=== PATIENT | male | born 1985 | race Caucasian/White ===

== ENCOUNTER 2020-09-22 20:07 | Emergency (ER) | payer BC, SELFPAY ==
[2020-09-22 20:37] VITALS: BP 134/78; PULSE 65; RESP 17; TEMP 36.8; O2SAT 98; BMI 22.4
--- NOTE | 2020-09-22 20:45 | HMH.EDUTC ---
[facility] [place] Disposition Clinical Impression: Encounter for laboratory testing for COVID-19 virus Sinusitis Qualifiers: Sinusitis location: unspecified location Chronicity: unspecified Qualified Code(s): J32.9 - Chronic sinusitis, unspecified Disposition: Home, Self-Care Condition on Discharge: Good Instructions: Sinusitis, DI for Sinusitis, DI for Cough -- Adult, Sore Throat, Preventing the Spread of Coronavirus Discharge Instructions Additional Instructions: *Monitor Temp, Over the counter Motrin or Tylenol as directed/as needed Tylenol every 4 hours and Motrin every 6 hours (as long as your family doctor has told you that you can take it) for fever or pain. and straight to ER if unable to lower temp less than 101.0 after medication given *Warm salt water gargles may help to soothe the throat *Throat Lozenges *Warm fluids like tea with honey may help to soothe the throat *Sleep elevated *Humidifier/Vaporizer *Flonase 2 sprays in each nostril daily but be aware that it may take 2-3 days before you notice improvement Take medication as prescribed Follow up IMMEDIATELY for new or worsening symptoms or no Noticeable improvement over the next 48-72 hours. 911 for difficulty breathing or swallowing You was tested for today for COVID19 your test result should be back in the next 24-48 hours, you may call to the [facility] tomorrow to see if your test results are back and the result [phone] You was given a handout with instructions for Self Quarantine and Self isolation for while you wait on test results and what to do if they are positive If you are positive the Health Dept will be contacting you also Prescriptions: Fluticasone Propionate [Flonase 50mcg nasal spray 16gm] 1 spr NS DAILY #1 bottle Transmission Status: Pending to [id number] methylPREDNISolone [Medrol 4mg tab] 4 mg PO DIRECTED #21 tab Transmission Status: Pending to [id number] Azithromycin [Z-Dennis 250mg Tab] 250 mg PO DIRECTED #6 tab Transmission Status: Pending to [id number] Referrals: Wayne Saleh MD [Primary Care Provider] - As needed Forms: Work/School Release Time of Disposition: 20:54 Medical Decision Making - Erasmo Inquiry Pt receiving controlled substance: No Erasmo was queried for this patient: No Vital Signs: 09/22/20 20:37 Temperature 98.2 F Temperature Source Oral Pulse Rate [Radial] 65 Respiratory Rate 17 Blood Pressure [Right Arm] 134/78 Blood Pressure Mean [Right Arm] 96 Blood Pressure Source [Right Arm] Automatic Cuff Blood Pressure Position [Right Arm] Sitting 02 Sat by Pulse Oximetry 98 Oxygen Delivery Method Room Air Orders (Tests/Meds): ORDERS Category Date Time Status Covid-19 Nasal PCR ([facility]) Routine Lab 09/22/20 20:38 Received [facility] [place] HPI - General Stated complaint: Sore throat, cough Time Seen by Provider: 09/22/20 20:45 Mode of Arrival: Ambulatory Source of Information: Patient Limitations: No Limitations Description of Symptoms (Recalled from Triage Doc. 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
[2020-09-22 21:05] VITALS: BP 134/78; PULSE 65; RESP 17; TEMP 36.8; O2SAT 98
== END 2020-09-22 21:06 | disposition home or self-care (01) ==
PROVIDERS: Emergency Provider Nurse Practitioner; PCP Family Medicine
DX: Z20.828 Contact with and (suspected) exposure to other viral communicable diseases (principal); J32.9 Chronic sinusitis, unspecified
CPT/HCPCS: 99201; U0003

== ENCOUNTER 2020-11-15 12:52 | Emergency (ER) | payer BC, SELFPAY ==
[2020-11-15 12:53] VITALS: BP 144/82; PULSE 74; RESP 14; TEMP 36.6; O2SAT 98; BMI 23.1
--- NOTE | 2020-11-15 13:51 | HMH.EDUTC ---
[facility] [place] Clinical Impression: Exposure to COVID-19 virus Sinusitis Qualifiers: Sinusitis location: unspecified location Chronicity: acute Recurrence: non-recurrent Qualified Code(s): J01.90 - Acute sinusitis, unspecified Disposition: Home, Self-Care Condition on Discharge: Good Instructions: DI for COVID-19 (Suspected or Confirmed ), Preventing the Spread of Coronavirus Discharge Instructions Additional Instructions: *Monitor Temp, Over the counter Motrin or Tylenol as directed/as needed Tylenol every 4 hours and Motrin every 6 hours (as long as your family doctor has told you that you can take it) for fever or pain. and straight to ER if unable to lower temp less than 101.0 after medication given Follow up IMMEDIATELY for new or worsening symptoms or no Noticeable improvement over the next 48-72 hours. 911 for difficulty breathing or swallowing You were tested for today for COVID19 your test result should be back in the next 24-48 hours, you may call to the [facility] to see if your test results are back in the next 48 hours [phone] [facility] hours are 9am-9pm You was given a handout with instructions for Self Quarantine and Self isolation for while you wait on test results and what to do if they are positive If you are positive the Health Dept will be contacting you also Prescriptions: Azithromycin [Z-Dennis 250mg Tab*] 250 mg PO UD DOSE PK #6 tab Transmission Status: Received by [id number] Referrals: Wayne Saleh MD [Primary Care Provider] - Time of Disposition: 13:51 Medical Decision Making - Medical Records Medical records reviewed: No: I reviewed the patient's medical records. - Erasmo Inquiry Pt receiving controlled substance: No Vital Signs: 11/15/20 12:53 11/15/20 13:53 Temperature 97.9 F 97.9 F Temperature Source Oral Oral Pulse Rate 74 Pulse Rate [Right] 74 Respiratory Rate 14 14 Blood Pressure 144/82 H Blood Pressure [Right Arm] 144/82 H Blood Pressure Mean [Right Arm] 102 02 Sat by Pulse Oximetry 98 [facility] [place] HPI - General Stated complaint: covid exposure Time Seen by Provider: 11/15/20 13:00 Source of Information: Patient Description of Symptoms (Recalled from Triage Doc. by RN): pt request COVId test pt has no symtoms HEENT Symptoms (Recalled from RN notes): No Resp Symptoms (Recalled from RN notes): No Skin Symptoms (Recalled from RN notes): No MS Symptoms (Recalled from RN notes): No Functional Status (Recalled from RN notes): wnl - History of Present Illness Provider Complaint: He states that he has been exposed to covid. He denies any symptoms except that he has sinus congestion. - Related Data Home Medications Medication Instructions Recorded Confirmed Pantoprazole Sodium [Protonix 20mg 20 mg PO DAILY 12/16/19 12/16/19 Tab] Previous Rx's Medication Instructions Recorded Amoxicillin/Potassium Clav 1 tab PO Q12H 10 Days #20 tab 12/16/19 [Augmentin 875-125 Tablet] predniSONE [Prednisone 20mg 20 mg PO BID 5 Days #10 tab 12/16/19 Tab] Azithromycin [Z-Dennis 250mg Tab] 250 mg PO DIRECTED #6 tab 09/22/20 Fluticasone Propionate [Flonase 1 spr NS DAILY #1 bottle 09/22/20 50mcg nasal spray 16gm] methylPREDNISolone [Medrol 4mg 4 mg PO DIRECTED #21 tab 09/22/20 tab] Azithromycin [Z-Dennis 250mg Tab*] 250 mg PO UD DOSE PK #6 tab 11/15/20 Allergies Allergy/AdvReac Type Severity Reaction Status Date / Time No Known Allergies Allergy Verified 11/15/20 13:16 - Worker's Comp Is this a Worker's Comp case?: No Is this an H Worker's Comp?: No Is this a [place] Worker's Comp?: No [facility] History - Hepatitis A Screen Drug use history?: No High risk sexual behaviors?: No History of sexually transmitted infection?: No Currently employed?: No Childcare worker?: No Do you have indoor plumbing?: Yes Do you have electricity?: Yes Attestation statement:: This patient has been screened for Hepatitis A risk factors. I have revi
[2020-11-15 13:53] VITALS: BP 144/82; PULSE 74; RESP 14; TEMP 36.6
--- NOTE | 2020-11-15 17:44 | PC.NURSE ---
patient notified of positive covid test
== END 2020-11-15 14:01 | disposition home or self-care (01) ==
PROVIDERS: Emergency Provider Nurse Practitioner Family; PCP Family Medicine
DX: U07.1 COVID-19 (principal); J01.90 Acute sinusitis, unspecified
CPT/HCPCS: 99202; G0463; U0003

== ENCOUNTER 2021-05-05 09:57 | Emergency (ER) | payer BC, SELFPAY ==
[2021-05-05 10:00] VITALS: BP 130/71; PULSE 66; RESP 19; TEMP 36.5; O2SAT 100; BMI 23.1
--- NOTE | 2021-05-05 10:22 | HMH.EDUTC ---
[facility] [place] Impression: Sinusitis Qualifiers: Sinusitis location: unspecified location Chronicity: unspecified Qualified Code(s): J32.9 - Chronic sinusitis, unspecified Disposition: Home, Self-Care Condition on Discharge: Good Instructions: Sinusitis, DI for Sinusitis, Prednisone, Amoxicillin and Clavulanic Acid Additional Instructions: *Monitor Temp, Over the counter Motrin or Tylenol as directed/as needed Tylenol every 4 hours and Motrin every 6 hours (as long as your family doctor has told you that you can take it) for fever or pain. and straight to ER if unable to lower temp less than 101.0 after medication given *Warm salt water gargles may help to soothe the throat *Throat Lozenges *Warm fluids like tea with honey may help to soothe the throat *Sleep elevated *Humidifier/Vaporizer *Start antibiotic. Sinus infections may take 2-3 days to notice much improvement so be sure to use conservative measures as discussed for symptoms Lots of Fluids Augmentin can cause GI effects. Probiotics may help to prevent these symptoms Follow up with family doctor if no improvement or any worsening of symptoms Follow up IMMEDIATELY for new or worsening symptoms or no Noticeable improvement over the next 48-72 hours. 911 for difficulty breathing or swallowing Prescriptions: Amoxicillin/Potassium Clav [Augmentin 875-125 Tablet] 1 tab PO Q12H 10 Days #20 tab Transmission Status: Pending to Robert Applebaum MD # guaiFENesin [Mucinex 600mg tablet] 1 - 2 tab PO Q12H PRN #20 tab.er.12h PRN Reason: Congestion Transmission Status: Pending to Robert Applebaum MD # predniSONE [Prednisone 20mg Tab] 20 mg PO BID 5 Days #10 tab Transmission Status: Pending to Robert Applebaum MD # Referrals: Edgard Tan [Primary Care Provider] - As needed Time of Disposition: 10:39 Medical Decision Making - Erasmo Inquiry Pt receiving controlled substance: No Erasmo was queried for this patient: No Vital Signs: 05/05/21 10:00 Temperature 97.7 F Temperature Source Oral Pulse Rate [Right Brachial] 66 Respiratory Rate 19 Blood Pressure [Right Arm] 130/71 Blood Pressure Mean [Right Arm] 90 Blood Pressure Source [Right Arm] Automatic Cuff Blood Pressure Position [Right Arm] Sitting 02 Sat by Pulse Oximetry 100 Oxygen Delivery Method Room Air [facility] [place] - General Stated complaint: sinus problems congestion Time Seen by Provider: 05/05/21 10:23 Mode of Arrival: Ambulatory Source of Information: Patient Limitations: No Limitations Description of Symptoms (Recalled from Triage Doc. by RN): PATIENT C/O CHEST/SINUS CONGESTION, SINUS DRAINAGE, AND COUGH AT NIGHT X 2 WEEKS HEENT Symptoms (Recalled from RN notes): Yes Resp Symptoms (Recalled from RN notes): Yes Skin Symptoms (Recalled from RN notes): No MS Symptoms (Recalled from RN notes): No Functional Status (Recalled from RN notes): WNL - History of Present Illness Provider Complaint: Patient states that he started about 2 weeks ago with sinus pressure and drainage in the back of his throat about 2 weeks ago States that he has been taking over the counter cold and sinus medication but it has continued to get worse States that he feels like it is trying to move into his chest and he has a cough now especially at night and still having sinus congestion - Related Data Home Medications Medication Instructions Recorded Confirmed Famotidine [Pepcid] 40 mg PO DAILY 05/05/21 05/05/21 Pantoprazole Sodium [Protonix 40mg 40 mg PO HS 05/05/21 05/05/21 tablet] Previous Rx's Medication Instructions Recorded Amoxicillin/Potassium Clav 1 tab PO Q12H 10 Days #20 tab 05/05/21 [Augmentin 875-125 Tablet] guaiFENesin [Mucinex 600mg tablet] 1 - 2 tab PO Q12H PRN #20 05/05/21 tab.er.12h predniSONE [Prednisone 20mg 20 mg PO BID 5 Days #10 tab 05/05/21 Tab] Allergies Allergy/AdvReac Type Severity Reaction Status Date / Time No Known Allerg
[2021-05-05 10:41] VITALS: BP 130/71; PULSE 66; RESP 19; TEMP 36.5; O2SAT 100
== END 2021-05-05 10:43 | disposition home or self-care (01) ==
PROVIDERS: Emergency Provider Nurse Practitioner; PCP Internal Medicine
DX: J32.9 Chronic sinusitis, unspecified (principal)
CPT/HCPCS: 99202; G0463

== ENCOUNTER 2021-07-02 18:35 | Emergency (ER) | payer BC, SELFPAY ==
[2021-07-02 19:59] VITALS: BP 134/75; PULSE 84; RESP 18; TEMP 36.6; O2SAT 99; BMI 23.1
[2021-07-02 20:08] VITALS: BP 131/79; PULSE 88; RESP 14; TEMP 36.8
--- NOTE | 2021-07-02 20:21 | HMH.EDUTC ---
[facility] [place] Disposition Clinical Impression: Viral syndrome, Exposure to COVID-19 virus Disposition: Home, Self-Care Condition on Discharge: Good Instructions: Preventing the Spread of Coronavirus Discharge Instructions Additional Instructions: Drink plenty of fluids. Take tylenol for pain or fever. Return if you begin to have difficulty breathing. Follow up with your regular doctor. GO TO THE ER FOR ANY WORSENING SYMPTOMS Quarantine until you know the results of your covid-19 test. If it is positive, the health department should call you and give you further instructions about your length of Quarantine and other things. Notify your school or workplace of your results and follow their instructions regarding return to work/school. Prescriptions: Brompheniramine/Pseudoephed/Dm [Bromfed Dm Cough Syrup] 5 ml PO Q6HP PRN #240 syrup PRN Reason: Cough Transmission Status: Received by [facility] #[id number] Ondansetron [Zofran 4mg ODT] 4 mg PO Q8HP PRN #20 tab.rapdis PRN Reason: Nausea Transmission Status: Received by [facility] #[id number] Referrals: Provider,Referral, [Primary Care Provider] - Forms: Work/School Release Time of Disposition: 20:24 Medical Decision Making - Medical Records Medical records reviewed: No: I reviewed the patient's medical records. - Erasmo Inquiry Pt receiving controlled substance: No Vital Signs: 07/02/21 19:59 07/02/21 20:08 Temperature 97.8 F 98.2 F Temperature Source Oral Pulse Rate 88 Pulse Rate [Left] 84 Respiratory Rate 18 14 Blood Pressure 131/79 Blood Pressure [Right Arm] 134/75 Blood Pressure Mean [Right Arm] 94 02 Sat by Pulse Oximetry 99 - Lab Data Lab Results 07/02/21 20:01: Strep Scn Rapid Clinic Negative Orders (Tests/Meds): ORDERS Category Date Time Status Covid-19 Nasal PCR ([facility]) Routine Lab 07/02/21 20:00 Received Strep Screen Confirmation Stat Micro 07/02/21 20:01 Received [facility] [place] HPI - General Stated complaint: fever, chills Time Seen by Provider: 07/02/21 20:21 Mode of Arrival: Ambulatory Source of Information: Patient Limitations: No Limitations Description of Symptoms (Recalled from Triage Doc. by RN): pt c/o fever, chills and body aches that started this am. HEENT Symptoms (Recalled from RN notes): No Resp Symptoms (Recalled from RN notes): No Skin Symptoms (Recalled from RN notes): No MS Symptoms (Recalled from RN notes): No Functional Status (Recalled from RN notes): fever, chills and body aches - History of Present Illness Provider Complaint: He states he has been having body aches, chills, and a cough since yesterday. Both his daughters have been sick at home. Both his daughters go to daycare. - Related Data Home Medications Medication Instructions Recorded Confirmed Famotidine [Pepcid] 40 mg PO DAILY 05/05/21 05/05/21 Pantoprazole Sodium [Protonix 40mg 40 mg PO HS 05/05/21 05/05/21 tablet] Previous Rx's Medication Instructions Recorded Amoxicillin/Potassium Clav 1 tab PO Q12H 10 Days #20 tab 05/05/21 [Augmentin 875-125 Tablet] guaiFENesin [Mucinex 600mg tablet] 1 - 2 tab PO Q12H PRN #20 05/05/21 tab.er.12h predniSONE [Prednisone 20mg 20 mg PO BID 5 Days #10 tab 05/05/21 Tab] Brompheniramine/Pseudoephed/Dm 5 ml PO Q6HP PRN #240 syrup 07/02/21 [Bromfed Dm Cough Syrup] Ondansetron [Zofran 4mg ODT] 4 mg PO Q8HP PRN #20 tab.rapdis 07/02/21 Allergies Allergy/AdvReac Type Severity Reaction Status Date / Time No Known Allergies Allergy Verified 11/15/20 13:16 - Worker's Comp Is this a Worker's Comp case?: No [facility] History - Hepatitis A Screen Drug use history?: No High risk sexual behaviors?: No History of sexually transmitted infection?: No Currently employed?: No Childcare worker?: No Do you have indoor plumbing?: Yes Do you have electricity?: Yes Attestation statement:: This patient has been screened for Hepatitis A risk f
[2021-07-02 20:49] LABS: UTC Strep Screen (Rapid) Negative (Negative)
== END 2021-07-02 20:28 | disposition home or self-care (01) ==
PROVIDERS: Emergency Provider Nurse Practitioner Family
DX: B34.9 Viral infection, unspecified (principal); Z20.822 Contact with and (suspected) exposure to COVID-19
CPT/HCPCS: 87880; 99203; G0463; U0003

== ENCOUNTER 2022-04-19 08:00 | Emergency (ER) | payer BC, SELFPAY ==
[2022-04-19 08:05] VITALS: BP 136/76; PULSE 78; RESP 17; TEMP 37.1; O2SAT 100; BMI 25.0
--- NOTE | 2022-04-19 08:23 | HMH.EDUTC ---
[facility] [place] Clinical Impression: Otitis media Qualifiers: Otitis media type: unspecified Laterality: left Qualified Code(s): H66.92 - Otitis media, unspecified, left ear Disposition: Home, Self-Care Condition on Discharge: Good Instructions: Middle Ear Infections (Alternative Therapy), Sore Throat, Middle Ear Infection Additional Instructions: *Monitor Temp, Over the counter Motrin or Tylenol as directed/as needed Tylenol every 4 hours and Motrin every 6 hours (as long as your family doctor has told you that you can take it) for fever or pain. and straight to ER if unable to lower temp less than 101.0 after medication given *Warm salt water gargles may help to soothe the throat *Throat Lozenges *Warm fluids like tea with honey may help to soothe the throat *Sleep elevated *Humidifier/Vaporizer Your throat swab was sent for culture. Those results are typically sent to your primary care. Be sure to follow up in 2-3 days with your family doctor/primary care physician if no improvement so they can review those result and treat if necessary. If you don?t have a primary care doctor, I recommend you get one but in the mean time, you will have to return to a walk in clinic Follow up IMMEDIATELY for new or worsening symptoms or no Noticeable improvement over the next 48-72 hours. 911 for difficulty breathing or swallowing Prescriptions: Amoxicillin [Amoxicillin 875MG Tab] 875 mg PO Q12H #20 tab Transmission Status: Pending to [id number] methylPREDNISolone [Medrol 4mg tab] 4 mg PO DIRECTED #21 tab Transmission Status: Pending to [id number] Referrals: Provider,Referral, [Primary Care Provider] - As needed Time of Disposition: 08:42 Medical Decision Making - Erasmo Inquiry Pt receiving controlled substance: No Erasmo was queried for this patient: No Vital Signs: 04/19/22 08:05 04/19/22 08:35 Temperature 98.7 F 98.7 F Temperature Source Oral Pulse Rate 78 Pulse Rate [Right Brachial] 78 Respiratory Rate 17 17 Blood Pressure 136/76 Blood Pressure [Right Arm] 136/76 Blood Pressure Mean [Right Arm] 96 Blood Pressure Source [Right Arm] Automatic Cuff Blood Pressure Position [Right Arm] Sitting 02 Sat by Pulse Oximetry 100 Oxygen Delivery Method Room Air - Lab Data Lab results reviewed: Yes: I reviewed the patient's lab results. Lab Results 04/19/22 08:15: Group A Strep Rapid Negative Orders (Tests/Meds): ORDERS Category Date Time Status Strep Screen Confirmation Stat Micro 04/19/22 08:15 Received [facility] [place] - General Stated complaint: sore throat, left ear ache Time Seen by Provider: 04/19/22 08:23 Mode of Arrival: Ambulatory Source of Information: Patient Limitations: No Limitations Description of Symptoms (Recalled from Triage Doc. by RN): PATIENT C/O SORE THROAT AND LEFT EAR ACHE X 7 DAYS HEENT Symptoms (Recalled from RN notes): Yes Resp Symptoms (Recalled from RN notes): No Skin Symptoms (Recalled from RN notes): No MS Symptoms (Recalled from RN notes): No Functional Status (Recalled from RN notes): WNL - History of Present Illness Provider Complaint: Patient states that he has been having sore throat and pain in his left ear States that pain started last week and has continued for the last 7 days States that today his ear and throat was still hurting so he came in - Related Data Home Medications Medication Instructions Recorded Confirmed Famotidine [Pepcid] 40 mg PO DAILY 05/05/21 04/19/22 Pantoprazole Sodium [Protonix 40mg 40 mg PO HS 05/05/21 04/19/22 tablet] Previous Rx's Medication Instructions Recorded Amoxicillin [Amoxicillin 875MG 875 mg PO Q12H #20 tab 04/19/22 Tab] methylPREDNISolone [Medrol 4mg 4 mg PO DIRECTED #21 tab 04/19/22 tab] Allergies Allergy/AdvReac Type Severity Reaction Status Date / Time No Known Allergies Allergy Verified 11/15/20 13:16 - Worker's Comp Is this a Worker'
[2022-04-19 08:35] VITALS: BP 136/76; PULSE 78; RESP 17; TEMP 37.1; O2SAT 100
[2022-04-19 08:39] LABS: Strep Scrn Group A (Rapid) Negative (Negative)
== END 2022-04-19 08:51 | disposition home or self-care (01) ==
PROVIDERS: Emergency Provider Nurse Practitioner
DX: H66.92 Otitis media, unspecified, left ear (principal); J02.9 Acute pharyngitis, unspecified; Z79.52 Long term (current) use of systemic steroids; Z79.899 Other long term (current) drug therapy
CPT/HCPCS: 87430; 99213; G0463

== ENCOUNTER 2022-09-04 15:00 | Emergency (ER) | payer BC, SELFPAY ==
[2022-09-04 15:17] VITALS: BP 138/83; PULSE 95; RESP 18; TEMP 36.6; O2SAT 98; BMI 23.7
--- NOTE | 2022-09-04 15:38 | EXP.UTC ---
Discharge Plan Disposition Patient Disposition: Home, Self-Care Condition: Good Prescriptions Prescriptions: New azithromycin [Zithromax] 250 mg tablet 250 mg PO UD DOSE PK Qty: 6 0RF Rx Instructions: Take two (2) tablets today, then one (1) tablet days #2 thru #5 benzonatate [benzonatate] 100 mg capsule 100 mg PO TIDP PRN (Reason: Cough) Qty: 30 0RF methylprednisolone 4 mg Tablets,Dose Pack 4 mg PO DIRECTED Qty: 21 0RF No Action famotidine 40 MG tablet 40 mg PO DAILY pantoprazole 40 MG tablet,delayed release (DR/EC) 40 mg PO HS methylprednisolone 4 MG tablet 4 mg PO DIRECTED Qty: 21 0RF Rx Instructions: Take as directed on package instructions amoxicillin 875 MG tablet 875 mg PO Q12H Qty: 20 0RF Referrals Follow up/Referrals: Provider,Referral, MD [Primary Care Provider] - See instructions Activity Restrictions/Add. Instructions Additional Instructions/Restrictions: Drink plenty of fluids. Take tylenol or ibuprofen for pain or fever. Take the medications as directed. Follow up with your regular doctor. GO TO THE ER FOR ANY WORSENING SYMPTOMS Don't start the oral steroids until tomorrow, since you had the shot here today. Clinical Impressions Clinical Impression: Sinusitis, Otitis media Instructions Patient Instructions: Sinusitis, DI for Sinusitis, Dexamethasone Injection Discharge ED Provider: Wilman Joyce [facility] [place] HPI General Stated complaint: Congestion Mode of Arrival: Ambulatory Source of Information: Patient Limitations: No Limitations Time Seen by Provider: 09/04/22 15:38 Description of Symptoms (Recalled from Triage Doc. by RN): pt c/o cough, sore throat, nasal drainage and congestion for 10 days HEENT Symptoms (Recalled from RN notes): Yes Resp Symptoms (Recalled from RN notes): Yes Skin Symptoms (Recalled from RN notes): No MS Symptoms (Recalled from RN notes): No Functional Status (Recalled from RN notes): na History of Present Illness Provider Complaint: He states that for the past 10 days he has had sinus congestion, ear pain and a cough. He denies any fever, chills or body aches. Related Data Home Medications Medication Instructions Recorded Confirmed famotidine 40 mg tablet 40 mg PO DAILY GERD 05/05/21 04/19/22 pantoprazole 40 mg tablet,delayed 40 mg PO HS GERD 05/05/21 04/19/22 release Previous Rx's Medication Instructions Recorded amoxicillin 875 mg tablet 875 mg PO Q12H #20 tabs 04/19/22 methylprednisolone 4 mg tablet 4 mg PO DIRECTED #21 tabs 04/19/22 azithromycin 250 mg tablet 250 mg PO UD DOSE PK #6 tabs 09/04/22 (Zithromax) benzonatate 100 mg capsule 100 mg PO TIDP PRN Cough #30 caps 09/04/22 methylprednisolone 4 mg tablets in 4 mg PO DIRECTED #21 tabs 09/04/22 a dose pack Allergies Allergy/AdvReac Type Severity Reaction Status Date / Time No Known Allergies Allergy Verified 11/15/20 13:16 Worker's Comp Is this a Worker's Comp case?: No PFSH PFSH Social History Smoking Status: Never smoker alcohol intake: never current occupational status: other Travel in the last 8 weeks: None housing: house ROS Obtained: Yes All systems reviewed & no additional complaints except as documented Constitutional Constitutional: Denies chills and Denies fever(s) Eyes Eyes: Denies eye discharge ENT Ears, Nose, Mouth, and Throat: Reports as per HPI Cardiovascular Cardiovascular: Denies chest pain Respiratory Respiratory: Denies chest congestion and Reports cough Gastrointestinal Gastrointestingal: Reports nausea; Denies abdominal pain, constipation, cramping, diarrhea or vomiting Musculoskeletal Musculoskeletal: Denies arthralgias Integumentary/Breasts Skin/Breast: Denies rash Neurologic Neurologic: Denies paresthesias Physical Exam General General appearance: alert and in no apparent distress Head Head exam: atrau
[2022-09-04 16:11] VITALS: BP 136/82; PULSE 88; RESP 18; TEMP 36.6; O2SAT 99
== END 2022-09-04 16:08 | disposition home or self-care (01) ==
PROVIDERS: Emergency Provider Nurse Practitioner Family
DX: H66.90 Otitis media, unspecified, unspecified ear (principal); J32.9 Chronic sinusitis, unspecified
CPT/HCPCS: 90471; 96372; 99212; G0463

== ENCOUNTER 2023-01-16 16:11 | Emergency (ER) | payer BC, SELFPAY ==
--- NOTE | 2023-01-16 16:18 | XR_ITS ---
PROCEDURE INFORMATION: Exam: XR Right Foot Exam date and time: 01/16/2023 4:16 PM Age: 37 years old Clinical indication: Pain; Foot; Right TECHNIQUE: Imaging protocol: Radiologic exam of the right foot. Views: 3 or more views. COMPARISON: No relevant prior studies available. FINDINGS: Bones/joints: Normal. Soft tissues: Normal. IMPRESSION: No acute findings.
[2023-01-16 16:45] VITALS: BP 147/77; PULSE 76; RESP 20; TEMP 36.8; O2SAT 100; BMI 35.6
--- NOTE | 2023-01-16 17:08 | EXP.UTC ---
Discharge Plan Disposition Patient Disposition: Home, Self-Care Condition: Good Prescriptions Prescriptions: New ibuprofen [IBU] 800 mg tablet 800 mg PO Q8HP PRN (Reason: Moderate Pain) Qty: 30 0RF No Action famotidine 40 MG tablet 40 mg PO DAILY pantoprazole 40 MG tablet,delayed release (DR/EC) 40 mg PO HS Referrals Follow up/Referrals: Edgard Tan [Primary Care Provider] - See instructions Karma Nino DPM [Staff Physician] - See instructions Activity Restrictions/Add. Instructions Additional Instructions/Restrictions: Rest the extremity, apply ice for 15 minutes as tolerated three or four times per day, Elevate the extremity as tolerated while you are resting. Take ibuprofen for pain. I sent in a prescription to your pharmacy. Follow up with Dr. Nino (podiatry). Sometimes there can be fractures that don't show up well on the first set of x-rays. So, you should follow up if you continue to have symptoms. I put in a referral but you need to call her office and schedule an appointment. Follow up with your regular doctor. GO TO THE ER FOR ANY WORSENING SYMPTOMS Clinical Impressions Clinical Impression: Crush injury of right foot Instructions Patient Instructions: DI for Crush Injury Discharge ED Provider: Wilman Joyce [facility] [place] General Stated complaint: AO03/10@1000 RT foot inj Mode of Arrival: Ambulatory Source of Information: Patient Limitations: No Limitations Time Seen by Provider: 01/16/23 17:08 Description of Symptoms (Recalled from Triage Doc. by RN): impact top of foot right HEENT Symptoms (Recalled from RN notes): No Resp Symptoms (Recalled from RN notes): No Skin Symptoms (Recalled from RN notes): No MS Symptoms (Recalled from RN notes): Yes Functional Status (Recalled from RN notes): n/a History of Present Illness Provider Complaint: He was working with his horse today with it accidentally stepped on his right foot. He has right foot pain now Related Data Home Medications Medication Instructions Recorded Confirmed famotidine 40 mg tablet 40 mg PO DAILY GERD 05/05/21 01/16/23 pantoprazole 40 mg tablet,delayed 40 mg PO HS GERD 05/05/21 01/16/23 release Previous Rx's Medication Instructions Recorded ibuprofen 800 mg tablet (IBU) 800 mg PO Q8HP PRN Moderate Pain 01/16/23 #30 tabs Allergies Allergy/AdvReac Type Severity Reaction Status Date / Time No Known Allergies Allergy Verified 01/16/23 17:06 Worker's Comp Is this a Worker's Comp case?: No [facility] Disclaimer: The information contained in this section may have been updated after the patient was seen, as this information can be updated by other users. Social History Smoking Status: Never smoker alcohol intake: never current occupational status: other Travel in the last 8 weeks: None housing: house ROS Obtained: Yes All systems reviewed & no additional complaints except as documented Constitutional Constitutional: Denies chills and Denies fever(s) Eyes Eyes: Denies eye discharge ENT Ears, Nose, Mouth, and Throat: Denies dizziness, Denies otalgia and Denies sore throat Cardiovascular Cardiovascular: Denies chest pain Respiratory Respiratory: Denies shortness of breath, Denies chest congestion, Denies cough, Denies stridor and Denies wheezing Gastrointestinal Gastrointestingal: Denies nausea or vomiting Musculoskeletal Musculoskeletal: Reports as per HPI Integumentary/Breasts Skin/Breast: Denies redness, Denies rash and Denies wounds Neurologic Neurologic: Denies dizziness and Denies paresthesias Allergic/Immunologic Allergic/Immunologic: Denies wheezing Physical Exam General General appearance: alert and in no apparent distress Head Head exam: atraumatic, normocephalic and normal inspection Eye Eye exam: Present normal appearance, PERRL and EOMI ENT ENT exam: Present normal exam, normal oropharynx,
[2023-01-16 17:46] VITALS: BP 147/77; PULSE 76; RESP 20; TEMP 36.8; O2SAT 100
== END 2023-01-16 17:45 | disposition home or self-care (01) ==
PROVIDERS: Emergency Provider Nurse Practitioner Family; PCP Internal Medicine
DX: S97.81XA Crushing injury of right foot, initial encounter (principal); W55.12XA Struck by horse, initial encounter
CPT/HCPCS: 73630; 99212; 99214; G0463

== ENCOUNTER → 2023-10-14 15:24 | Outpatient (CLI) | payer BC, SELFPAY ==
[2023-10-14 16:07] LABS: Basophils % 0.9 % (0.1-2.0); Eosinophils # 0.2 K/mm3 (0.0-0.4); Eosinophils % 4.1 % (0.1-12.0); Hematocrit 42.4 % (42.0-52.0); Hemoglobin 14.4 g/dL (14.1-18.0); Lymphocytes % 24.3 % (10-50); Mean Corpuscular Hemoglobin 30.1 pg (27.0-31.2); Mean Corpuscular Volume 88.6 fl (80-94); Mean Platelet Volume 8.5 fl (7.4-10.4); Monocytes # 0.3 K/mm3 (0.1-1.0); Monocytes % 7.9 % (1.7-9.3); Neutrophils # 2.5 K/mm3 (1.8-7.8); Neutrophils % 62.8 % (37.0-80.0); Platelet Count 174 K/mm3 (142-424); Red Blood Count 4.79 M/mm3 (4.60-6.20); Red Cell Distribution Width 13.2 % (11.5-17.5)
[2023-10-14 16:50] LABS: Alanine Aminotransferase 31 U/L (12-78); Albumin Level 4.8 g/dl (3.5-5.0); Alkaline Phosphatase 57 U/L (38-126); Anion Gap 11.9 mEq/L (5-15); Aspartate Amino Transferase 37 U/L (17-59); Bilirubin,Direct 0.1 mg/dl (0.0-0.4); Bilirubin,Indirect 0.6 mg/dL (0.0-0.9); Bilirubin,Total 0.7 mg/dl (0.2-1.3); Bilirubin,Unconjugated 0.6 mg/dL (0.0-1.1); Blood Urea Nitrogen 14 mg/dl (9-20); Calcium 9.2 mg/dl (8.4-10.2); Carbon Dioxide 30 mmol/L (22.0-30.0); Chloride 101 mmol/L (98-107); Chol/HDL Ratio 4.7 (1-3.5); Cholesterol 159 mg/dl (140-200); Estimated Glomerular Filt Rate 95 ml/min (>60); GFR (African American) 115 ML/MIN (>60); Glucose 93 mg/dl (74-100); HDL Cholesterol 34 mg/dl (40-60); Magnesium 1.7 mg/dl (1.6-2.3); Potassium 3.9 mmoL/L (3.5-5.1); Sodium 139 mmol/L (136-145); Total Protein,Serum 7.5 g/dl (6.3-8.2); Triglycerides 138 mg/dl (30-150); VLDL Cholesterol 28 mg/dL (0-40)
[2023-10-14 17:02] LABS: Free T4 (Free Thyroxine) 1.09 ng/dl (0.78-2.19)
[2023-10-14 17:07] LABS: Direct LDL Cholesterol 96.52 mg/dL (100-129)
[2023-10-14 17:20] LABS: Thyroid Stimulating Hormone 1.87 uIU/mL (0.465-4.68)
== END ==
PROVIDERS: Visit Provider Internal Medicine
DX: R00.2 Palpitations (principal); Z82.49 Family history of ischemic heart disease and other diseases of the circulatory system
CPT/HCPCS: 36415; 80048; 80061; 80076; 83735; 84439; 84443; 85025; 93270

== ENCOUNTER → 2023-10-23 15:04 | Outpatient (CLI) | payer BC, SELFPAY ==
--- NOTE | 2023-10-23 15:05 | CA_ITS ---
APPROVED REPORT EXAM: Comprehensive 2D, Doppler, and color-flow Echocardiogram [employer] Associate: JAJA Vargas, RVS Ht: 6 ft 2 in Wt: 204lbs BSA: 2.19 BP: 185/147 mmHg Indications: Palpitations, Family Hx-HD 2D Dimensions Left Atrium 3.03 cm M: 3.0 - 4.0 M-Mode Dimensions RVDd 2.04 cm (0.9-2.6) LA Diam 2.82 cm (1.9-4.0) LVDd 5.53 cm (3.5-5.7) LVDs 3.62 cm (3.5-5.7) IVSd 0.84 cm (0.6-1.1) PWd 0.87 cm (0.6-1.1) EF (Teich) 63.00% EPSs 0.67 cm FS 34.50% EDV (Teich) 149.30 mL TAPSE 2.54 (<1.7) ESV (Teich) 55.20 mL LV Diastology E Decel Time 110 (160-240 msec) E/A Ratio 1.01 MED A' 11.60 cm/s LAT A' 8.60 cm/s Aortic Valve ANIKA Index 1.32 cm2/m2 AoV Peak Shree. 112.0 (50-130 cm/s) AO Peak GR. 5.00 mmHg AO Mean GR. 3.20 (<5 mmHg) AO VTI 22.8 (18-25 cm) ANIKA (VTI) 2.96 (2.5-4.5 cm2) Mitral Valve MV A Velocity 63.0 (40-130 cm/s) E/A Ratio 1.01 Left Ventricle The left ventricle is normal size (LVEDVi 63 ml/m2). The left ventricular systolic function is normal. The left ventricular ejection fraction is within the normal range. There is normal left ventricular wall thickness. There is normal LV segmental wall motion. The left ventricular diastolic function is normal. LVEF is 50-55%. Right Ventricle The right ventricle is mildly dilated. The right ventricular systolic function is normal. Atria The left atrium size is normal. The right atrium size is normal. There is no Doppler evidence of interatrial shunt. Aortic Valve The aortic valve opens well. There is no aortic valvular stenosis. No aortic regurgitation is present. Mitral Valve The mitral valve is normal in structure. No evidence of mitral valve stenosis. Trace mitral regurgitation. Tricuspid Valve The tricuspid valve leaflets are thin and pliable. Trace tricuspid regurgitation. There is insufficient TR jet to estimate RVSP. Pulmonic Valve The pulmonary valve is normal in structure. Trace pulmonic regurgitation. Great Vessels The aortic root is normal in size. The ascending aorta is normal in size. IVC is normal in size and collapses >50% with inspiration. Pericardium There is no pericardial effusion. Other Information Study Quality: Adequate Conclusion Normal biventricular systolic function. Mild RV dilation. No significant valvularr stenosis or regurgitation. Note the discordant LVEF on TTE vs. CCTA. The normal LVEF on TTE likely reflects the true LVEF. Electronically signed by : Maya Duggan MD 10/30/2023 19:33:55
== END ==
PROVIDERS: Visit Provider Internal Medicine
DX: R00.2 Palpitations (principal); Z82.49 Family history of ischemic heart disease and other diseases of the circulatory system
CPT/HCPCS: 93306

== ENCOUNTER → 2023-10-26 06:55 | Outpatient (CLI) | payer BC, SELFPAY ==
[2023-10-26] VITALS (11 sets, daily range): BP systolic 113–149; BP diastolic 65–99; PULSE 58–111; RESP 16–18; TEMP 36.4–36.8; O2SAT 97–100; BMI 25.7
--- NOTE | 2023-10-26 06:58 | CT_ITS ---
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 A noncontrast coronary calcium scan was performed. A CT attenuation threshold of 130 Hounsfield units (HU) was used for the detection of calcium in contiguous voxels of 1 sq mm in area to be counted as individual lesions. Bolus tracking in the ascending aorta with a threshold of 180 HU was performed. Immediately afterwards, ECG synchronized cardiac CT was then performed from the cardiac base to apex using retrospective gating with ECG tube current modulation. A total of 85 mL of Isovue 370 mg/mL contrast medium was administered at 5 mL/sec followed by a saline flush using a biphasic injection protocol. A tube voltage of 120 KVp was used. The patient received the following medications prior to the cardiac CT. 100 mg of oral metoprolol 25 mg of intravenous metoprolol 0.8 mg of sublingual nitroglycerin The average heart rate at the time of acquisition was 69 bpm and regular. Image Reconstruction Transaxial images were reconstructed at 0.67 mm slide thickness. Data was reviewed interactively on an advanced workstation capable of 2 and 3-dimensional displays in all conventional reconstruction formats, including multiplanar reformations, maximum intensity projections, curved multiplanar reformations, and volume rendered reconstructions. When applicable, selected routine images describing the relevant coronary anatomy and pathology were saved and sent to PACS. Complications None Technical Quality Overall image quality was good. Coronary artery opacification was adequate. Total DLP (Dose-Length Product) is 1277.7 mGy-cm. The reported value represents the total of one or more individual components during the CT acquisition of this date and at this time, and as such, the same value may appear in more than one CT report depending on the interpreting/reporting physicians. COMPARISON None FINDINGS CT Coronary Calcium Scoring LMA (Left Main Artery) = 0 LAD (Left Anterior Descending) = 0 LCX (Left Coronary Circumflex) = 0 RCA (Right Coronary Artery) = 0 Total Calcium Score = 0 using the AJ-130 method. The interpretation of the calcium heart score is based on the following continuum*: 0 = no calcified plaque detected (risk of coronary artery disease is very low ??? less than 5%) 1-10 = calcium detected in extremely minimal levels (risk of coronary diseases is still low ??? less than 10%) 11-100 = mild levels of plaque detected with certainty (mild or minimal narrowing of heart arteries is likely) 101-400 = definite,at least moderate levels of plaque detected (relatively high risk of a heart attack within 3-5 years) >401-999 = extensive levels of plaque detected (high risk of heart attack, high levels of vascular disease are present, high likelihood of at least one significant coronary narrowing) *The calcium heart score quantifies the burden of coronary calcification/plaque in the coronary arteries. The calcium heart score is not able to evaluate the presence or burden of non-calcified (i.e. soft) plaque. There is no identifiable calcification in the aortic valve, mitral annulus or mitral valve, pericardium, or myocardium. Coronary CT Angiography The coronary arterial system is right dominant. Quantitative Stenosis Grading: Left Main (LM): The left main originates normally from the left sinus of Valsalva. The LM bifurcates into the left anterior descending artery and left circumflex artery. The LM is patent with no evidence of atherosclerosis. Left Anterior Descending (LAD) and Diagonal Branches: The LAD gives off 2 diagonal branches. The LAD and its branches are p
== END | disposition home or self-care (01) ==
PROVIDERS: Visit Provider Internal Medicine
DX: R00.2 Palpitations (principal); Z82.49 Family history of ischemic heart disease and other diseases of the circulatory system
CPT/HCPCS: 75571; 75574; Q9967

== ENCOUNTER 2024-01-16 08:12 | Emergency (ER) | payer BC, SELFPAY ==
[2024-01-16 08:20] VITALS: BP 162/58; PULSE 92; RESP 18; TEMP 37.1; O2SAT 97; BMI 25.7
[2024-01-16 08:50] LABS: UTC Strep Screen (Rapid) Negative (Negative)
[2024-01-16 08:51] LABS: UTC Influenza A Antigen Negative (Negative); UTC Influenza B Antigen Negative (Negative)
--- NOTE | 2024-01-16 09:29 | ED_ITS ---
Discharge Plan Disposition Patient Disposition: Home, Self-Care Condition: Good Prescriptions Prescriptions: New azithromycin 250 mg tablet 250 mg PO DIRECTED Qty: 6 0RF Rx Instructions: Take two (2) tablets on day #1, then one (1) tablet day #2 thru #5 fluticasone propionate 50 mcg/actuation spray,suspension 1 spray intranasal DAILY Qty: 9.9 0RF No Action famotidine 40 MG tablet 40 mg PO DAILY pantoprazole 40 MG tablet,delayed release (DR/EC) 40 mg PO HS Referrals Follow up/Referrals: Provider,Referral, MD [Primary Care Provider] - See instructions Activity Restrictions/Add. Instructions Additional Instructions/Restrictions: Start antibiotic patient to take as ordered for a full length of time even if you feel better. Sinus infections do not get better overnight. It may take 2-3 days to notice much improvement so be sure to use conservative measures as discussed for symptoms. Flonase 1 spray each nostril daily to help with nasal congestion, sinus and ear pressure/information Increase fluids Humidifier/vaporizer as needed Tylenol and ibuprofen as needed for fever or pain. If symptoms do not improve or get worse return or be seen in the ER Follow-up with primary care this week Clinical Impressions Clinical Impression: Sinusitis Instructions Patient Instructions: DI for Sinusitis Discharge ED Provider: Layla ([facility])Dennise [facility] [place] HPI General Stated complaint: congestion ba Mode of Arrival: Ambulatory Source of Information: Patient Limitations: No Limitations Time Seen by Provider: 01/16/24 09:29 Description of Symptoms (Recalled from Triage Doc. by RN): Pt's symptoms are cough, and chest congestion. Pt's child last week had flu and strep. HEENT Symptoms (Recalled from RN notes): Yes Resp Symptoms (Recalled from RN notes): No Skin Symptoms (Recalled from RN notes): No MS Symptoms (Recalled from RN notes): No Functional Status (Recalled from RN notes): n/a History of Present Illness Provider Complaint: 38 yr old male presents for cough,sinus pressure, green nasal drainage and chest congestion for over 8 days. Pt's child last week had flu and strep. Related Data Home Medications Medication Instructions Recorded Confirmed famotidine 40 mg tablet 40 mg PO DAILY GERD 05/05/21 01/16/24 pantoprazole 40 mg tablet,delayed 40 mg PO HS GERD 05/05/21 01/16/24 release Previous Rx's Medication Instructions Recorded azithromycin 250 mg tablet 250 mg PO DIRECTED #6 tabs 01/16/24 fluticasone propionate 50 1 spray intranasal DAILY #9.9 mL 01/16/24 mcg/actuation nasal spray,suspension Allergies Allergy/AdvReac Type Severity Reaction Status Date / Time No Known Allergies Allergy Verified 01/16/24 08:49 Worker's Comp Is this a Worker's Comp case?: No [facility] Disclaimer: The information contained in this section may have been updated after the patient was seen, as this information can be updated by other users. 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) Smoking Status: Never smoker alcohol intake: never current occupational status: employed and other Travel in the last 8 weeks: None housing: house ROS Obtained: Yes All systems reviewed & no additional complaints except as documented Constitutional Constitutional: Reports system reviewed and no additional complaints, except as documented Eyes Eyes: Reports system reviewed and no additional complaints, except as documented and Reports as per HPI ENT Ears, Nose, Mouth, and Throat: Reports system reviewed and no additional complaints, except as documented, Reports as per HPI, Reports nasal congestion and Reports nasal discharge Cardiovascular Cardiovascular: Reports system reviewed and no additional complaints, except as documented Respiratory Respiratory: Reports system reviewed and no additional complaints, except as documented, Reports chest congestion and Reports cough Musculoskeletal Musculoskeletal: Reports system reviewed and no additional complaints, except as documented Integumentary/Breasts Skin/Breast: Reports system reviewed and no additional complaints, except as documented Neurologic Neurologic: Reports system reviewed and no additional complaints, except as documented Endocrine Endocrine: Reports system reviewed and no additional complaints, except as documented Allergic/Immunologic Allergic/Immunologic: Reports system reviewed and no additional complaints, except as documented Physical Exam General General appearance: alert and in no apparent distress Head Head exam: atraumatic Eye Eye exam: Present normal appearance and PERRL ENT ENT exam: Present normal exam, mucous membranes moist and TM's normal bilaterally Expanded ENT Exam Nose exam: Present sinus tenderness Respiratory Respiratory exam: Present normal lung sounds bilaterally Cardiovascular Cardiovascular exam: Present regular rate and normal rhythm Neurological Exam Neurological exam: Present alert and oriented X3 Skin Skin exam: Present warm and intact Medical Decision Making Medical Records Medical records reviewed: Yes I reviewed the patient's medical records. Erasmo Inquiry Pt receiving controlled substance: No Erasmo was queried for this patient: No Vital Signs: 01/16/24 08:20 Temperature 98.7 F Temperature Source Oral Pulse Rate [Right Radial] 92 H Respiratory Rate 18 Blood Pressure [Right Arm] 162/58 H Blood Pressure Mean [Right Arm] 92 Blood Pressure Source [Right Arm] Automatic Cuff Blood Pressure Position [Right Arm] Sitting 02 Sat by Pulse Oximetry 97 Oxygen Delivery Method Room Air Lab Data Lab results reviewed: Yes I reviewed the patient's lab results. Lab Results 01/16/24 08:31: Influenza Type A Ag Negative, Influenza Type B Ag Negative, Strep Scn Rapid Clinic Negative Orders (Tests/Meds): ORDERS Category Date Time Status Strep Screen Confirmation Stat Micro 01/16/24 08:31 Received
[2024-01-16 09:47] VITALS: BP 162/58; PULSE 92; RESP 18; TEMP 37.1; O2SAT 97
== END 2024-01-16 09:47 | disposition home or self-care (01) ==
PROVIDERS: Emergency Provider Nurse Practitioner Family
DX: J01.90 Acute sinusitis, unspecified (principal); R05.9 Cough, unspecified; R09.81 Nasal congestion; Z20.828 Contact with and (suspected) exposure to other viral communicable diseases
CPT/HCPCS: 87804; 87880; 99212; 99214; G0463

== ENCOUNTER 2024-02-06 09:57 | Emergency (ER) | payer BC, SELFPAY ==
[2024-02-06 10:05] VITALS: BP 138/67; PULSE 85; RESP 20; TEMP 36.6; O2SAT 100; BMI 26.6
--- NOTE | 2024-02-06 10:12 | EXP.UTC ---
Discharge Plan Disposition Patient Disposition: Home, Self-Care Condition: Good Prescriptions Prescriptions: New methylprednisolone 4 mg Tablets,Dose Pack 4 mg PO DIRECTED 6 Days Qty: 21 0RF Rx Instructions: Take 1 pack as directed for 6 days guaifenesin [Mucinex] 600 mg tablet extended release 12hr 600 - 1,200 mg PO BIDP PRN (Reason: Congestion) Qty: 30 0RF benzonatate 100 mg capsule 100 mg PO TIDP PRN (Reason: Cough) Qty: 30 0RF amoxicillin-pot clavulanate 875-125 mg Tablet 1 tab PO Q12H Qty: 20 0RF No Action pantoprazole 40 MG tablet,delayed release (DR/EC) 40 mg PO HS Referrals Follow up/Referrals: Provider,Referral, MD [Primary Care Provider] - See instructions Activity Restrictions/Add. Instructions Additional Instructions/Restrictions: Drink plenty of fluids. Take tylenol or ibuprofen for pain or fever. Take the medications as directed. Follow up with your regular doctor. GO TO THE ER FOR ANY WORSENING SYMPTOMS Clinical Impressions Clinical Impression: Bronchitis Sinusitis Qualifiers: Sinusitis location: maxillary Chronicity: acute Recurrence: non-recurrent Qualified Code(s): J01.00 - Acute maxillary sinusitis, unspecified Instructions Patient Instructions: Sinusitis, DI for Sinusitis Discharge ED Provider: Wilman Joyce [facility] [place] General Stated complaint: SKY, chest congestion, sore throat Time Seen by Provider: 02/06/24 10:11 History of Present Illness Provider Complaint: He states that for the past 1 week he has had worsening chest and sinus congestion. He has a productive cough with greenish sputum. He denies any fever/chills/body aches. Related Data Home Medications Medication Instructions Recorded Confirmed pantoprazole 40 mg tablet,delayed 40 mg PO HS GERD 05/05/21 02/06/24 release Previous Rx's Medication Instructions Recorded amoxicillin 875 mg-potassium 1 tab PO Q12H #20 tabs 02/06/24 clavulanate 125 mg tablet benzonatate 100 mg capsule 100 mg PO TIDP PRN Cough #30 caps 02/06/24 guaifenesin 600 mg tablet, 600 - 1,200 mg (1 - 2 x 600 mg) PO 02/06/24 extended release 12 hr (Mucinex) BIDP PRN Congestion #30 tabs methylprednisolone 4 mg tablets in 4 mg PO DIRECTED 6 days #21 tabs 02/06/24 a dose pack Allergies Allergy/AdvReac Type Severity Reaction Status Date / Time No Known Allergies Allergy Verified 01/16/24 08:49 [facility] Disclaimer: The information contained in this section may have been updated after the patient was seen, as this information can be updated by other users. 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) Smoking Status: Never smoker alcohol intake: never current occupational status: employed and other Travel in the last 8 weeks: None housing: house ROS Obtained: Yes All systems reviewed & no additional complaints except as documented Constitutional Constitutional: Reports poor appetite Eyes Eyes: Reports system reviewed and no additional complaints, except as documented ENT Ears, Nose, Mouth, and Throat: Reports as per HPI Cardiovascular Cardiovascular: Reports system reviewed and no additional complaints, except as documented and Denies chest pain Respiratory Respiratory: Denies shortness of breath, Reports chest congestion, Reports cough, Denies stridor and Denies wheezing Gastrointestinal Gastrointestingal: Reports system reviewed and no additional complaints, except as documented; Denies abdominal pain, diarrhea or vomiting Musculoskeletal Musculoskeletal: Reports system reviewed and no additional complaints, except as documented and Denies arthralgias Integumentary/Breasts Skin/Breast: Reports system reviewed and no additional complaints, except as documented and Denies rash Neurologic Neurologic: Denies paresthesias Allergic/Immunologic Allergic/Immunologic: Denies wheezing Physical Exam General General appearance: alert and in no apparent distress Eye Eye exam: Present normal appearance, PERRL and EOMI ENT ENT exam: Present mucous membranes moist and normal external ear exam Expanded ENT Exam External ear exam: Present normal external inspection TM/Canal exam: Bilateral TM: erythema and bulging Nose exam: Absent sinus tenderness Nasal speculum exam: Bilateral: normal Mouth exam: Present normal external inspection; Absent drooling Teeth exam: Present normal inspection Throat exam: Present tonsillar erythema and tonsillomegaly Neck Neck exam: Present normal inspection, full ROM and trachea midline; Absent tenderness, lymphadenopathy or thyromegaly Chest Chest inspection: Present normal inspection and symmetric chest wall rise; Absent tenderness or rash Respiratory Respiratory exam: Present normal lung sounds bilaterally; Absent respiratory distress, wheezes, stridor or accessory muscle use Cardiovascular Cardiovascular exam: Present regular rate, normal rhythm and normal heart sounds Abdominal Exam Abdominal exam: Present soft; Absent distention, tenderness, guarding, rebound or rigidity Extremities Exam Extremities exam: Present normal inspection, full ROM and normal capillary refill; Absent tenderness or calf tenderness Back Exam Back exam: Present normal inspection and full ROM; Absent tenderness Neurological Exam Neurological exam: Present alert and oriented X3 Psychiatric Psychiatric exam: Present normal affect and normal mood Skin Skin exam: Present warm, dry, intact and normal color Lymphatic Lymphatic Findings: no adenopathy Medical Decision Making Medical Records Medical records reviewed: No I reviewed the patient's medical records. Erasmo Inquiry Pt receiving controlled substance: No Lab Data Lab results reviewed: Yes I reviewed the patient's lab results.
[2024-02-06 10:47] VITALS: BP 138/67; PULSE 85; RESP 20; TEMP 36.6; O2SAT 100
== END 2024-02-06 10:51 | disposition home or self-care (01) ==
PROVIDERS: Emergency Provider Nurse Practitioner Family
DX: J20.9 Acute bronchitis, unspecified (principal); J01.90 Acute sinusitis, unspecified; R05.9 Cough, unspecified; R09.81 Nasal congestion; K21.9 Gastro-esophageal reflux disease without esophagitis
CPT/HCPCS: 99212; 99214; G0463